=== PATIENT | female | born 1945 | race Caucasian/White ===

== ENCOUNTER → 2019-06-24 | Outpatient (CLI) | payer MEDICARE ==
[~2019-06-24] MED LIST: ISOVUE-370 76% 100ML VIAL (Q9967) As Ordered ONE
--- NOTE | 2019-06-29 19:48 | REP ---
CT ANGIOGRAM ABDOMINAL AORTA AND BILATERAL LOWER EXTREMITIES: CT angiogram abdominal aorta and bilateral lower extremities. CT angiogram of abdominal aorta and bilateral lower extremities were performed following the intravenous administration of 100 mL of [id number]. Sagittal, coronal and 3D MIP reconstruction images are performed. No infiltrate is seen is seen in either lung base. There is colonic diverticulosis without acute diverticulitis. The appendix is normal. Liver, spleen, adrenals and pancreas are unremarkable. There is a cyst in the lower pole of the right kidney measuring 4.7 cm in diameter. There is no abdominal aortic aneurysm. There is no adenopathy, free air, or free fluid. There is mild atherosclerotic plaquing and narrowing of the abdominal aorta without aneurysm. There is minor narrowing of the mesenteric and renal arteries without stenosis. The right common iliac artery, internal iliac, external iliac, and common femoral arteries demonstrate very mild plaquing and narrowing. Right profunda is patent. Right superficial femoral artery demonstrates mild narrowing, particularly as it exits the adductor canal. There is slight narrowing of the right popliteal artery. Trifurcation vessels in the right calf are patent. These taper distally. There is at least 2 vessel runoff into the right foot. On the left the common iliac, internal iliac, external iliac, common femoral arteries demonstrates some minor scattered plaquing with no stenosis. Left profunda is patent. Left superficial femoral artery demonstrates minimal narrowing distally. Left popliteal and trifurcation vessels are patent. The trifurcation vessels taper distally with two vessel run off into the left foot. IMPRESSION: No significant arterial stenosis of the abdominal aorta and bilateral lower extremity arterial systems with only mild scattered plaquing and narrowing. Electronically Signed by Shayne Maxwell MD 06/30/2019 07:12 P
== END ==
LOC: M RAD 13:25
PROVIDERS: ATTEND Surgery Vascular Surgery
DX: I70.213 Atherosclerosis of native arteries of extremities with intermittent claudication, bilateral legs (principal); I71.4 Abdominal aortic aneurysm, without rupture
CPT/HCPCS: 75635; Q9967